=== PATIENT | male | born 1995 | race Caucasian/White ===

== ENCOUNTER 2021-09-03 16:51 | Emergency (ER) | payer SELFPAY ==
[~2021-09-03] VITALS: Ht 182.9 cm; Wt 62.1 kg
[2021-09-03 17:25] VITALS: BP 135/85
--- NOTE | 2021-09-03 20:02 | NUR ---
PT BROUGHT BACK TO ER LOBBY VIA W/C FROM ULTRASOUND.
[2021-09-03 21:50] VITALS: BP 128/78
--- NOTE | 2021-09-03 21:50 | NUR ---
Patient discharged with v/s stable. Written and verbal after care instructions given and explained. Patient verbalized understanding. Ambulatory with steady gait. All questions addressed prior to discharge. Advised to follow up with PMD.
== END 2021-09-03 21:50 | disposition home or self-care (01) ==
LOC: MED 16:51
DX: N50.812 Left testicular pain (principal)
CPT/HCPCS: 76870; 99284; Q0092

== ENCOUNTER 2021-12-19 15:45 | Emergency (ER) | payer SELFPAY ==
[~2021-12-19] VITALS: Ht 182.9 cm; Wt 65.8 kg
[2021-12-19 15:49] VITALS: BP 135/76
--- NOTE | 2021-12-19 20:19 | NUR ---
PT eloped 2018
--- NOTE | 2021-12-19 20:19 | NUR ---
PATIENT LEFT WITHOUT BEING SEEN BY DR. HEARD. NO FURTHER CARE PROVIDED FOR PATIENT.
== END 2021-12-19 20:19 | disposition left against medical advice (07) ==
LOC: MED 15:45
DX: N50.819 Testicular pain, unspecified (principal); Z53.21 Procedure and treatment not carried out due to patient leaving prior to being seen by health care provider